=== PATIENT | male | born 1960 | race Two or more races ===

== ENCOUNTER 2016-07-14 19:54 | Emergency (ER) | payer MEDICAID | END 2016-07-14 22:21 | disposition home or self-care (01) | LOC: D.ER 19:54 | DX: L03.116 Cellulitis of left lower limb (principal); F17.200 Nicotine dependence, unspecified, uncomplicated ==

== ENCOUNTER 2016-07-16 10:36 | Emergency (ER) | payer MEDICAID | END 2016-07-16 13:14 | disposition home or self-care (01) | LOC: D.ER 10:36 | DX: L03.116 Cellulitis of left lower limb (principal); F32.9 Major depressive disorder, single episode, unspecified; F17.200 Nicotine dependence, unspecified, uncomplicated ==

== ENCOUNTER 2017-04-27 07:30 | Emergency (ER) | payer SELFPAY ==
[2017-04-27 09:09] LABS: HEMOGLOBIN 15.9 g/dL (13.5-17.5); MCH 31.1 pg (26.0-34.0); MCHC 34.6 g/dL (31.0-37.0); MEAN PLATELET VOLUME 10.7 fL (7.4-10.4); PLATELET COUNT 267 10x3/uL (130-400); RBC 5.11 10x6/uL (4.20-6.10); RDW 12.8 % (11.5-14.5); WBC 20.4 10x3/uL (4.8-10.8)
[2017-04-27 09:10] LABS: ALBUMIN 3.5 g/dL (3.4-5.0); ALKALINE PHOSPHATASE 78 U/L (46-116); ALT (SGPT) 21 U/L (10-68); BILIRUBIN - TOTAL 0.41 mg/dL (0.2-1.3); CALC OSMOLALITY 281 mosm/kg (275-300); CALCIUM 8.7 mg/dL (8.5-10.1); CARBON DIOXIDE 23.6 mmol/L (21.0-32.0); CHLORIDE - SERUM 106 mmol/L (98-107); CREATININE - SERUM 0.9 mg/dL (0.6-1.3); GLUCOSE 126 mg/dL (74-106); POTASSIUM - SERUM 3.9 mmol/L (3.5-5.1); PROTEIN - SERUM 7.1 g/dL (6.4-8.2); SODIUM 139 mmol/L (136-145); UREA NITROGEN 17 mg/dL (7-18); eGFR NON AFRICAN AMERICAN > 90 mL/min (90-120)
[2017-04-27 10:52] LABS: ANISOCYTOSIS OCC; EOSINOPHILS 1 % (0-7); LYMPHOCYTES 6 % (15-50); MONOCYTES 4 % (2-11); NEUTROPHILS 83 % (40-80); PLATELET ESTIMATE NORMAL; ROULEAUX OCC
[2017-04-27 11:33] LABS: APPEARANCE CLEAR (CLEAR); BILIRUBIN NEGATIVE (NEGATIVE); COLOR YELLOW (YELLOW); GLUCOSE NEGATIVE (NEGATIVE); KETONE NEGATIVE (NEGATIVE); NITRITE NEGATIVE (NEGATIVE); PROTEIN NEGATIVE (NEGATIVE); UROBILINOGEN NORMAL (NORMAL)
[2017-04-27 11:39] LABS: MUCUS <1+ /lpf (NONE SEEN); RED CELLS - URINE OCC /hpf (0-5)
[2017-04-27 11:40] LABS: BACTERIA FEW /hpf (NONE SEEN); WHITE CELLS - URINE RARE /hpf (0-5)
== END 2017-04-27 14:18 | disposition home or self-care (01) ==
LOC: D.ER 07:30
PROVIDERS: Emergency Medicine
DX: R10.9 Unspecified abdominal pain (principal); R19.7 Diarrhea, unspecified; R11.10 Vomiting, unspecified; F17.200 Nicotine dependence, unspecified, uncomplicated

== ENCOUNTER 2018-07-05 07:23 | Emergency (ER) | payer SELFPAY ==
[~2018-07-05] VITALS: Ht 172.7 cm; Wt 70.5 kg
[2018-07-05 07:29] VITALS: Ht 172.7 cm; Wt 70.5 kg
[2018-07-05] MEDS ORDERED: VOLTAREN75 MG PO (09:11)
[2018-07-05] MEDS ORDERED: KEFLEX500 MG PO (09:11)
[2018-07-05 09:27] VITALS: BP 105/60
== END 2018-07-05 09:28 | disposition home or self-care (01) ==
LOC: D.ER 07:23
DX: J11.1 Influenza due to unidentified influenza virus with other respiratory manifestations (principal); R51 Headache

== ENCOUNTER 2019-10-29 08:49 | Emergency (ER) | payer SELFPAY ==
[~2019-10-29] VITALS: Ht 172.7 cm; Wt 72.7 kg
[~2019-10-29 08:49] MED LIST: KEFLEX500 MG PO; VOLTAREN75 MG PO
[2019-10-29 09:05] VITALS: Ht 172.7 cm; Wt 72.7 kg
[2019-10-29] MEDS ORDERED: CYCLOBENZAPRINE10 MG PO (09:08)
[2019-10-29] MEDS ORDERED: STEROID (09:08)
[2019-10-29 11:14] LABS: CALC OSMOLALITY 282 mosm/kg (275-300); CALCIUM 7.9 mg/dL (8.5-10.1); CARBON DIOXIDE 28.8 mmol/L (21.0-32.0); CHLORIDE - SERUM 105 mmol/L (98-107); GLUCOSE 99 mg/dL (74-106); POTASSIUM - SERUM 3.7 mmol/L (3.5-5.1); SODIUM 139 mmol/L (136-145); UREA NITROGEN 27 mg/dL (7-18); eGFR NON AFRICAN AMERICAN 81 mL/min (90-120)
[2019-10-29 11:16] LABS: HEMATOCRIT 44.5 % (42.0-54.0); LYMPHOCYTES 30.8 % (15-50); MCH 31.4 pg (26.0-34.0); MCHC 33.7 g/dL (31.0-37.0); MCV 93.1 fL (80.0-100.0); MEAN PLATELET VOLUME 9.9 fL (7.4-10.4); NEUTROPHILS 59.1 % (40-80); PLATELET COUNT 314 10x3/uL (130-400); RBC 4.78 10x6/uL (4.20-6.10); RDW 14.1 % (11.5-14.5); WBC 11.6 10x3/uL (4.8-10.8)
[2019-10-29 11:19] LABS: ALKALINE PHOSPHATASE 54 U/L (30-120); ALT (SGPT) 26 U/L (10-68); BILIRUBIN - TOTAL 0.31 mg/dL (0.2-1.3); PROTEIN - SERUM 5.9 g/dL (6.4-8.2)
[2019-10-29] MEDS ORDERED: STERAPRED DS 1010 MG PO (11:41)
[2019-10-29] MEDS ORDERED: HYDROCODON-ACE1 EAC7 PO (11:41)
[2019-10-29 11:55] LABS: BILIRUBIN NEGATIVE (NEGATIVE); GLUCOSE NEGATIVE (NEGATIVE); KETONE NEGATIVE (NEGATIVE); NITRITE NEGATIVE (NEGATIVE); SPECIFIC GRAVITY 1.025 (1.005-1.020)
[2019-10-29 12:13] VITALS: BP 114/69
== END 2019-10-29 12:14 | disposition home or self-care (01) ==
LOC: D.ER 08:49
PROVIDERS: Family Medicine
DX: M54.40 Lumbago with sciatica, unspecified side (principal)